=== PATIENT | female | born 1990 | race Caucasian/White ===

== ENCOUNTER 2017-03-31 01:15 | Observation (INO) | payer OTHER ==
[~2017-03-31 01:15] MED LIST: IBUP-2218 PO; PREN-385 PO
[2017-03-31 14:32] VITALS: BP 99/63
== END 2017-03-31 18:30 | disposition home or self-care (01) ==
LOC: MLD 01:15 → UNDOADMOB 01:15 → MLD 13:15
PROVIDERS: ADMIT Obstetrics & Gynecology; ATTEND Obstetrics & Gynecology
DX: O26.893 Other specified pregnancy related conditions, third trimester (principal); R20.0 Anesthesia of skin; R10.2 Pelvic and perineal pain; Z3A.34 34 weeks gestation of pregnancy
CPT/HCPCS: 36415; 76815; 81000; 82731; G0378; Q0092

== ENCOUNTER 2017-04-12 12:38 | Observation (INO) | payer OTHER ==
[~2017-04-12] VITALS: Ht 167.6 cm; Wt 81.6 kg
[2017-04-12] MEDS ORDERED: BETAMETH ACET/BETAMETH NA PH 30 MG/5 ML VIAL IM SCH (13:41)
[2017-04-12] MEDS ORDERED: BETAMETH ACET/BETAMETH NA PH 30 MG/5 ML VIAL IM ONE (14:19)
[2017-04-12] MEDS ORDERED: cefTRIAXone 1,000 MG in LIDOCAINE 1% ***ER ONLY *** 2.1 ML IM ONE (15:15)
[2017-04-12] MEDS ORDERED: cefTRIAXone 1,000 MG in LIDOCAINE 1% 2.1 ML IM SCH (16:00)
== END 2017-04-12 16:55 | disposition home or self-care (01) ==
LOC: MLD 12:38
PROVIDERS: ADMIT Obstetrics & Gynecology; ATTEND Obstetrics & Gynecology
DX: O36.8130 Decreased fetal movements, third trimester, not applicable or unspecified (principal); Z3A.35 35 weeks gestation of pregnancy
CPT/HCPCS: 96372; G0378; J0696; J0702; J2001

== ENCOUNTER 2017-04-13 13:55 | Observation (INO) | payer OTHER ==
[~2017-04-13] VITALS: Ht 167.6 cm; Wt 81.6 kg
[2017-04-13] MEDS ORDERED: BETAMETH ACET/BETAMETH NA PH 30 MG/5 ML VIAL IM ONE ×2 (14:50→15:18)
[2017-04-13] MEDS ORDERED: TERBUTALINE 1 MG/ML VIAL SUBQ SCH (14:50)
[2017-04-13] MEDS ORDERED: TERBUTALINE 1 MG/ML VIAL SUBQ ONE (15:18)
[2017-04-13 15:25] VITALS: BP 125/70
== END 2017-04-13 19:13 | disposition home or self-care (01) ==
LOC: MLD 13:55
PROVIDERS: ADMIT Obstetrics & Gynecology; ATTEND Obstetrics & Gynecology
DX: O21.2 Late vomiting of pregnancy (principal); Z3A.35 35 weeks gestation of pregnancy
CPT/HCPCS: 76805; 81000; 96372; G0378; J0702; J3105; Q0092

== ENCOUNTER 2017-04-14 06:25 | Observation (INO) | payer OTHER ==
[~2017-04-14] VITALS: Ht 167.6 cm; Wt 81.6 kg
--- NOTE | 2017-04-14 08:28 | NUR ---
PATIENT HAS BEEN SCREENED AND CATEGORIZED MODERATE. PATIENT WILL BE SEEN WITHIN 7 DAYS OF ADMISSION. 04/20/[address]
== END 2017-04-14 09:14 | disposition home or self-care (01) ==
LOC: MLD 06:25
PROVIDERS: ADMIT Obstetrics & Gynecology; ATTEND Obstetrics & Gynecology
DX: O26.893 Other specified pregnancy related conditions, third trimester (principal); R10.2 Pelvic and perineal pain; Z3A.35 35 weeks gestation of pregnancy
CPT/HCPCS: 81000; G0378

== ENCOUNTER 2017-04-16 10:07 | Observation (INO) | payer OTHER ==
[~2017-04-16] VITALS: Ht 167.6 cm; Wt 81.6 kg
[~2017-04-16 10:07] MED LIST changes: -IBUP-2218 PO
[2017-04-16 10:25] VITALS: BP 119/68
[2017-04-16] MEDS: LACTATED RINGERS 1,000 ML IV SCH ×2 (11:10→18:53)
[2017-04-16] MEDS: NIFEdipine 10 MG CAPLF PO SCH ×4 (11:49→22:11)
[2017-04-16] MEDS ORDERED: NIFEdipine 10 MG CAPLF ONE ×4 (11:55→22:14)
[2017-04-16 12:03] LABS: APPEARANCE,URINE HAZY (CLEAR); BILIRUBIN,URINE NEGATIVE (NEGATIVE); BLOOD, URINE NEGATIVE (NEGATIVE); COLOR,URINE YELLOW (YELLOW); LEUKOCYTE ESTERASE ,URINE 3+ (NEGATIVE); NITRITE, URINE NEGATIVE (NEGATIVE); UGLUCOSE NEGATIVE (NEGATIVE)
[2017-04-16 12:25] LABS: BARBITURATE, URINE NEG. ng/ml (NEG <=200); BENZODIAZEPINE, URINE NEG. ng/mL (NEG <=200); CANNABINOID, URINE NEG. ng/mL (NEG <=50); COCAINE, URINE NEG. ng/mL (NEG <=300); OPIATE, URINE NEG. ng/mL (NEG <=2000); PHENCYCLIDINE SCREEN,URINE NEG. ng/mL (NEG <=25)
[2017-04-16] MEDS: NALBUPHINE 10 MG/ML AMP IVP PRN ×2 (12:43→21:08)
[2017-04-16] MEDS ORDERED: PROMETHAZINE 25 MG/ML VIAL ONE ×2 (12:43→20:49)
[2017-04-16] MEDS: PROMETHAZINE 25 MG/ML VIAL IVP PRN ×2 (12:43→21:09)
[2017-04-16] MEDS ORDERED: NALBUPHINE HYDROCHLORIDE 10 MG/ML VIAL ONE ×2 (12:43→20:49)
[2017-04-16 13:25] LABS: RBC,URINE 0-5 (RARE) /HPF (0-5)
[2017-04-16 13:26] LABS: WBC,URINE 16-25 (MOD) /HPF (0-5)
[2017-04-16] MEDS: AMPICILLIN 2,000 MG in NACL 0.9% 100 ML IV SCH ×2 (17:12→22:11)
[2017-04-16] MEDS ORDERED: AMPICILLIN 2,000 MG VIAL ONE ×2 (17:18→22:15)
[2017-04-16] MEDS ORDERED: ACETAMINOPHEN 325 MG TAB PO PRN (19:45)
[2017-04-16] MEDS ORDERED: ACETAMINOPHEN 325 MG TAB ONE (19:55)
[2017-04-17] MEDS ORDERED: TERBUTALINE 1 MG/ML VIAL SUBQ SCH (01:05)
[2017-04-17] MEDS ORDERED: TERBUTALINE 1 MG/ML VIAL SUBQ ONE (01:18)
[2017-04-17] MEDS ORDERED: AMPICILLIN 2,000 MG VIAL ONE ×2 (02:03→06:28)
[2017-04-17] MEDS: AMPICILLIN 2,000 MG in NACL 0.9% 100 ML IV SCH (02:04)
[2017-04-17] MEDS ORDERED: NIFEdipine 10 MG CAPLF ONE ×2 (02:04→06:28)
[2017-04-17] MEDS: NIFEdipine 10 MG CAPLF PO SCH (02:04)
--- NOTE | 2017-04-17 06:44 | NUR ---
PATIENT HAS BEEN SCREENED AND CATEGORIZED LOW NUTRITION RISK. PATIENT WILL BE SEEN WITHIN 7 DAYS OF ADMISSION. 04/23/17 ANTONELLA WELLS MS, RDN
== END 2017-04-17 09:30 | disposition home or self-care (01) ==
LOC: MLD 10:07 → MFCC 15:35
PROVIDERS: ADMIT Obstetrics & Gynecology; ATTEND Obstetrics & Gynecology
DX: O99.89 Other specified diseases and conditions complicating pregnancy, childbirth and the puerperium (principal); M54.9 Dorsalgia, unspecified; Z3A.34 34 weeks gestation of pregnancy
CPT/HCPCS: 76810; 80305; 81001; 87086; 96361; 96365; 96366; 96375; 96376; G0378; J0290; J2300; J2550; J3105; J7120; Q0092

== ENCOUNTER 2017-04-18 01:14 | Inpatient (IN) | payer OTHER ==
[~2017-04-18] VITALS: Ht 167.6 cm; Wt 81.6 kg
[2017-04-18] MEDS ORDERED: DOBUTamine 250 MG/D5W PREMIX 250 ML IV SCH (01:30)
[2017-04-18] MEDS ORDERED: PROMETHAZINE 25 MG/ML VIAL IVP PRN (01:30)
[2017-04-18] MEDS ORDERED: LACTATED RINGERS 1,000 ML IV SCH (01:30)
[2017-04-18] MEDS ORDERED: TERBUTALINE 1 MG/ML VIAL SUBQ ONE (01:37)
[2017-04-18] MEDS ORDERED: NALBUPHINE 10 MG/ML AMP IVP PRN (01:45)
[2017-04-18] MEDS ORDERED: TERBUTALINE 1 MG/ML VIAL SUBQ SCH (01:50)
[2017-04-18] MEDS ORDERED: NALBUPHINE HYDROCHLORIDE 10 MG/ML VIAL ONE ×2 (02:18→09:24)
[2017-04-18] MEDS ORDERED: PROMETHAZINE 25 MG/ML VIAL ONE ×2 (02:18→09:25)
[2017-04-18] MEDS ORDERED: NIFEdipine 10 MG CAPLF ONE ×2 (08:10→13:25)
[2017-04-18] MEDS ORDERED: NIFEdipine 10 MG CAPLF PO SCH (11:00)
[2017-04-18] MEDS ORDERED: OXYTOCIN 10 UNITS/ML VIAL ONE (14:20)
[2017-04-18 14:36] LABS: MEAN CORPUSCULAR HEMOGLOBIN 19 pg (27-31); MEAN CORPUSCULAR HGB CONC 30 g/dL (33-37); MEAN CORPUSCULAR VOLUME 64 fL (80-94); PLATELET COUNT (AUTO) 393 K/uL (140-450); RED BLOOD CELL COUNT(AUTO) 3.57 MIL/uL (4.20-5.40); RED CELL DISTRIBUTION WIDTH 20.4 % (11.6-13.7); WHITE BLOOD COUNT (AUTO) 16.1 K/uL (4.8-10.8)
[2017-04-18 14:46] LABS: HEMOGLOBIN 6.9 g/dL (12.0-16.0)
[2017-04-18] MEDS ORDERED: BUPIVACAINE-MPF 0.75% 10 ML VIAL INJ ONE (15:00)
[2017-04-18] MEDS ORDERED: CARBOPROST 250 MCG/ML AMP IM ONE ×2 (15:00→15:23)
[2017-04-18 15:04] LABS: LYMPHOCYTES % (MANUAL) 11 % (20-46); METAMYELOCYTES % 3 % (0-0); MONOCYTES % (MANUAL) 1 % (5-12); PROMYELOCYTES % 2 % (0-0)
[2017-04-18] MEDS ORDERED: METHYLERGONOVINE 0.2 MG/ML AMP ONE (15:22)
[2017-04-18] MEDS ORDERED: ceFAZolin 1,000 MG VIAL IVP ONE (15:28)
[2017-04-18] MEDS ORDERED: MIDAZOLAM 2 MG/2 ML VIAL ONE (15:37)
[2017-04-18] MEDS ORDERED: fentaNYL 0.05 MG/ML VIAL ONE (15:37)
[2017-04-18] MEDS ORDERED: MORPHINE PRES FREE 10 MG/10 ML AMP IV ONE (15:38)
[2017-04-18] MEDS ORDERED: KETAMINE 500 MG/5 ML VIAL ONE (15:38)
[2017-04-18] MEDS ORDERED: ONDANSETRON 4 MG/2 ML VIAL IVP PRN (16:20)
[2017-04-18] MEDS ORDERED: KETOROLAC 30 MG/ML VIAL IVP PRN (16:20)
[2017-04-18] MEDS ORDERED: DEXT 5% IV SCH (19:04)
[2017-04-18] MEDS ORDERED: OXYTOCIN 10 UNITS in LACTATED RINGERS 1,000 ML IV SCH (19:04)
[2017-04-18] MEDS ORDERED: OXYTOCIN IV SCH (19:04)
[2017-04-18] MEDS ORDERED: OXYTOCIN 20 UNITS in DEXT 5% / LACT RING 1,000 ML IV SCH (19:04)
[2017-04-18] MEDS ORDERED: LACT RING IV SCH (19:04)
[2017-04-18] MEDS ORDERED: MAGNESIUM CITRATE 300 ML BTL PO SCH (19:05)
[2017-04-18] MEDS ORDERED: MEASLES, MUMPS, AND RUBELLA 1 VIAL SQVAC PRN (19:05)
[2017-04-18] MEDS ORDERED: TEMAZEPAM 15 MG CAP PO PRN ×2 (19:05)
[2017-04-18] MEDS ORDERED: METHYLERGONOVINE 0.2 MG/ML AMP IM PRN (19:05)
[2017-04-18] MEDS ORDERED: BUPRENORPHINE 0.3 MG/ML VIAL IV PRN (19:05)
[2017-04-18] MEDS ORDERED: oxyCODONE/APAP 5/325 MG 1 TAB TAB PO PRN (19:05)
[2017-04-18] MEDS ORDERED: HYDROcodone/APAP 5/325 MG 1 TAB TAB PO PRN (19:05)
[2017-04-18] MEDS ORDERED: TRIMETHOBENZAMIDE 200 MG/2 ML SYR IM PRN (19:05)
[2017-04-18] MEDS ORDERED: SIMETHICONE 80 MG TAB.CHEW PO PRN (19:05)
[2017-04-18] MEDS: diphenhydrAMINE 50 MG/ML VIAL IVP PRN (20:16)
[2017-04-18] MEDS: CALCIUM POLYCARBOPHIL 625 MG TAB PO SCH (20:44)
[2017-04-18] MEDS: DOCUSATE SOD/SENNA 50/8.6 MG 1 TAB PO SCH (20:44)
[2017-04-18] MEDS: BISACODYL 5 MG TABEC PO SCH (20:45)
[2017-04-18] MEDS ORDERED: SENNA 8.6 MG TAB PO SCH (21:00)
[2017-04-18] MEDS ORDERED: OXYTOCIN 20 UNITS/LR PREMIX 1,000 ML IV ONE (23:11)
[2017-04-19] MEDS ORDERED: LACTATED RINGERS 1,000 ML IV SCH (01:05)
[2017-04-19] MEDS ORDERED: OXYTOCIN 20 UNITS/LR PREMIX 1,000 ML IV ONE (01:53)
[2017-04-19] MEDS: diphenhydrAMINE 50 MG/ML VIAL IVP PRN (01:56)
[2017-04-19] MEDS ORDERED: FUROSEMIDE 20 MG/2 ML VIAL IVP SCH (04:00)
[2017-04-19 06:43] LABS: BASOPHILS % (AUTO) 0.2 % (0.0-2.0); EOSINOPHILS # (AUTO) 0.1 K/uL (0-0.4); EOSINOPHILS % (AUTO) 0.8 % (0.0-4.0); HEMATOCRIT 24.8 % (36-48); HEMOGLOBIN 7.8 g/dL (12.0-16.0); LYMPHOCYTES # (AUTO) 2.1 K/uL (2.5-16.5); LYMPHOCYTES % (AUTO) 11.6 % (20.5-51.1); MEAN CORPUSCULAR HEMOGLOBIN 23 pg (27-31); MEAN CORPUSCULAR HGB CONC 31 g/dL (33-37); MEAN CORPUSCULAR VOLUME 72 fL (80-94); MONOCYTES # (AUTO) 0.8 K/uL (0.8-1.0); MONOCYTES % (AUTO) 4.1 % (1.7-9.3); NEUTROPHILS # (AUTO) 15.4 K/uL (1.8-7.7); NEUTROPHILS % (AUTO) 83.3 % (42.2-75.2); PLATELET COUNT (AUTO) 304 K/uL (140-450); RED BLOOD CELL COUNT(AUTO) 3.43 MIL/uL (4.20-5.40); RED CELL DISTRIBUTION WIDTH 22.9 % (11.6-13.7); WHITE BLOOD COUNT (AUTO) 18.4 K/uL (4.8-10.8)
[2017-04-19] MEDS ORDERED: OXYTOCIN 20 UNITS in LACTATED RINGERS 1,000 ML IV SCH (07:25)
--- NOTE | 2017-04-19 08:59 | NUR ---
PATIENT HAS BEEN SCREENED AND CATEGORIZED LOW NUTRITION RISK. PATIENT WILL BE SEEN WITHIN 7 DAYS OF ADMISSION. 04/25/2017 LELIA BLANK MBA, RD
[2017-04-19] MEDS ORDERED: SODIUM PHOSPHATE 118 ML ENEM RC SCH (09:00)
[2017-04-19] MEDS ORDERED: BISACODYL 10 MG SUPP RC SCH (09:00)
[2017-04-19] MEDS: FERROUS GLUCONATE 324 MG TAB PO SCH ×3 (09:42→18:47)
[2017-04-19] MEDS: ASCORBIC ACID 500 MG TAB PO SCH (09:43)
[2017-04-19] MEDS: HYDROcodone/APAP 5/325 MG 1 TAB TAB PO PRN ×2 (13:51→23:04)
[2017-04-19] MEDS: DOCUSATE SOD/SENNA 50/8.6 MG 1 TAB PO SCH (21:43)
[2017-04-20] MEDS: BISACODYL 5 MG TABEC PO SCH (09:58)
[2017-04-20] MEDS: CALCIUM POLYCARBOPHIL 625 MG TAB PO SCH (10:00)
[2017-04-20] MEDS: ASCORBIC ACID 500 MG TAB PO SCH (10:01)
[2017-04-20] MEDS: FERROUS GLUCONATE 324 MG TAB PO SCH ×3 (10:05→19:00)
[2017-04-20] MEDS: HYDROcodone/APAP 5/325 MG 1 TAB TAB PO PRN ×2 (11:06→14:56)
[2017-04-20] MEDS: DOCUSATE SOD/SENNA 50/8.6 MG 1 TAB PO SCH (20:29)
[2017-04-20] MEDS: oxyCODONE/APAP 5/325 MG 1 TAB TAB PO PRN (20:32)
[2017-04-21] MEDS: oxyCODONE/APAP 5/325 MG 1 TAB TAB PO PRN ×2 (06:16→12:00)
[2017-04-21] MEDS: CALCIUM POLYCARBOPHIL 625 MG TAB PO SCH (09:58)
[2017-04-21] MEDS: FERROUS GLUCONATE 324 MG TAB PO SCH ×2 (09:59→10:00)
== END 2017-04-21 17:15 | disposition home or self-care (01) | DRG 540 ==
LOC: MFCC 01:14 → OBSVTOIN 01:14 → INTOOBSV 01:14 → UNDOADMOB 01:14 → MFCC 13:48 → OBSVTOIN 13:48 → MFCC 17:02
PROVIDERS: ADMIT Obstetrics & Gynecology; ATTEND Obstetrics & Gynecology
PROC: 0UL70ZZ Occlusion of Bilateral Fallopian Tubes, Open Approach (ICD-10-PCS; 2017-04-18)
PROC: 30233N1 Transfusion of Nonautologous Red Blood Cells into Peripheral Vein, Percutaneous Approach (ICD-10-PCS; 2017-04-18)
PROC: 10D00Z1 Extraction of Products of Conception, Low, Open Approach (ICD-10-PCS; principal; 2017-04-18 14:45)
PROC: 3E0234Z Introduction of Serum, Toxoid and Vaccine into Muscle, Percutaneous Approach (ICD-10-PCS; 2017-04-19)
DX: O34.211 Maternal care for low transverse scar from previous cesarean delivery (principal); O30.003 Twin pregnancy, unspecified number of placenta and unspecified number of amniotic sacs, third trimester; O99.02 Anemia complicating childbirth; D64.9 Anemia, unspecified; Z37.2 Twins, both liveborn; Z3A.35 35 weeks gestation of pregnancy; Z30.2 Encounter for sterilization; Z23 Encounter for immunization
CPT/HCPCS: 36415; 85025; 86592; 86886; 86900; 86901; 86920; 90715; J0690; J1200; J1885; J1940; J2210; J2250; J2270; J2300; J2550; J2590; J3010; J3105; J3490; J7030; J7060; J7120; P9016

== ENCOUNTER 2020-12-26 13:12 | Emergency (ER) | payer OTHER, SELFPAY ==
[~2020-12-26] VITALS: Ht 167.6 cm; Wt 61.2 kg
[2020-12-26 13:31] VITALS: BP 96/68
--- NOTE | 2020-12-26 13:36 | NUR ---
BIB SELF C/O SMITH, EARS PAIN , SORE THROAT, RUNNY NOSE, FEVER, COUGH,N/V/D X 3 DAYS. PMH:C SECTION
--- NOTE | 2020-12-26 13:38 | NUR ---
TENT 1
[2020-12-26] MEDS ORDERED: IMO2 PO (14:31)
[2020-12-26] MEDS ORDERED: IBUP-2213 PO (14:31)
[2020-12-26] MEDS ORDERED: ONDA-24 PO (14:31)
[2020-12-26] MEDS ORDERED: PROM118S5 PO (14:31)
[2020-12-26] MEDS ORDERED: BENZ1LOZ98 PO (14:31)
--- NOTE | 2020-12-26 14:38 | NUR ---
COVID PCR SWAB DONE.
[2020-12-26 14:45] VITALS: BP 96/68
--- NOTE | 2020-12-26 14:45 | NUR ---
Patient discharged with v/s stable. Written and verbal after care instructions given and explained. Patient alert, oriented and verbalized understanding of instructions. Ambulatory with steady gait. All questions addressed prior to discharge. ID band removed. Patient advised to follow up with PMD. Rx of CEPACOL SORE THROAT LOZENGE, LOPERAMIDE, ZOFRAN & PROMETHAZINE given. Patient educated on indication of medication including possible reaction and side effects. Opportunity to ask questions provided and answered.
== END 2020-12-26 14:45 | disposition home or self-care (01) ==
LOC: MED 13:12
DX: B34.9 Viral infection, unspecified (principal); Z20.822 Contact with and (suspected) exposure to COVID-19; F17.210 Nicotine dependence, cigarettes, uncomplicated; Z98.890 Other specified postprocedural states; Z79.899 Other long term (current) drug therapy
CPT/HCPCS: 99283; U0003

== ENCOUNTER 2021-01-02 15:29 | Emergency (ER) | payer OTHER, SELFPAY ==
[~2021-01-02] VITALS: Ht 167.6 cm; Wt 61.2 kg
[~2021-01-02 15:29] MED LIST changes: +BENZ1LOZ98 PO; +IBUP-2213 PO; +IMO2 PO; +ONDA-24 PO; +PROM118S5 PO
[2021-01-02 15:59] VITALS: BP 90/54
[2021-01-02] MEDS ORDERED: PROM118S5 PO (16:54)
[2021-01-02] MEDS ORDERED: IBUP-2213 PO (16:54)
[2021-01-02 17:48] VITALS: BP 114/49
--- NOTE | 2021-01-02 17:48 | NUR ---
NO NURSING CARE GIVEN
--- NOTE | 2021-01-02 17:49 | NUR ---
Patient discharged with v/s stable. Written and verbal after care instructions given and explained. Patient alert, oriented and verbalized understanding of instructions. Ambulatory with steady gait. All questions addressed prior to discharge. ID band removed. Patient advised to follow up with PMD. Rx of PROMETHAZINE, given. Patient educated on indication of medication including possible reaction and side effects. Opportunity to ask questions provided and answered.
== END 2021-01-02 17:49 | disposition home or self-care (01) ==
LOC: MED 15:29
DX: J06.9 Acute upper respiratory infection, unspecified (principal); Z79.1 Long term (current) use of non-steroidal anti-inflammatories (NSAID); Z79.899 Other long term (current) drug therapy
CPT/HCPCS: 71045; 99283

== ENCOUNTER 2022-03-07 21:28 | Emergency (ER) | payer MEDICAID, OTHER ==
[~2022-03-07] VITALS: Ht 167.6 cm; Wt 59.0 kg
[~2022-03-07 21:28] MED LIST changes: +BENZ-300 PO; -BENZ1LOZ98 PO; +ONDA-188 PO; -ONDA-24 PO
[2022-03-07 21:39] VITALS: BP 160/111
[2022-03-07 21:49] VITALS: BP 160/111
--- NOTE | 2022-03-07 21:49 | NUR ---
CC OF FEVER, BACK PAIN, COUGH, N/V, DIARRHEA, RUNNING NOSE, CHILLS. COVID SYMPTOMS. MD VARNER: NONE NKA
--- NOTE | 2022-03-08 00:12 | NUR ---
CALLED TO BED, NO RESPONSE PATIENT LEFT WITHOUT BEING SEEN BY DR. DIAZ. NO FURTHER CARE PROVIDED FOR PATIENT.
--- NOTE | 2022-03-08 00:20 | NUR ---
CALLED FOR SECOND TIME, NO RESPONSE
--- NOTE | 2022-03-08 00:26 | NUR ---
CALLED FOR THE THIRD TIME, NO RESPONSE
== END 2022-03-08 00:12 | disposition left against medical advice (07) ==
LOC: MED 21:28
DX: R50.9 Fever, unspecified (principal); Z53.21 Procedure and treatment not carried out due to patient leaving prior to being seen by health care provider
CPT/HCPCS: 96361; 96374; 96375

== ENCOUNTER 2022-12-13 15:17 | Emergency (ER) | payer MEDICAID ==
[~2022-12-13] VITALS: Ht 167.6 cm; Wt 63.5 kg
[2022-12-13 15:34] VITALS: BP 121/59; PULSE 45; RESP 20; TEMP 100.3; O2SAT 100
[2022-12-13] MEDS ORDERED: IBUPROFEN 600 MG TAB PO ONE (15:50)
[2022-12-13] MEDS ORDERED: ACETAMINOPHEN EXTRA STRENGTH 500 MG TAB PO ONE (15:50)
[2022-12-13] MEDS ORDERED: ONDANSETRON 4 MG ODT PO ONE (15:55)
[2022-12-13 16:08] LABS: FLU A ANTIGEN negative (NEGATIVE); FLU B ANTIGEN NEGATIVE (NEGATIVE)
[2022-12-13] MEDS ORDERED: ALBU0.0912 IH (16:18)
[2022-12-13] MEDS ORDERED: BPM/118S31 PO (16:18)
[2022-12-13] MEDS ORDERED: ACET-10509 PO (16:18)
[2022-12-13] MEDS ORDERED: IBUP-2213 PO (16:18)
== END 2022-12-13 18:22 | disposition home or self-care (01) ==
LOC: MED 15:17
DX: U07.1 COVID-19 (principal); Z79.899 Other long term (current) drug therapy
CPT/HCPCS: 99284; Q0162